=== PATIENT | male | born 1940 | race Caucasian/White ===

== ENCOUNTER 2017-02-18 13:36 | Emergency (ER) | payer OTHER ==
[2017-02-18 13:02] LABS: BASOPHILS 0.4 %; BASOPHILS ABSOLUTE 0.04 10/3/uL (0.0-0.16); EOSINOPHILS 3.9 %; EOSINOPHILS ABSOLUTE 0.39 10/3/uL (0.0-0.53); ER CBC TAT 0 Hrs 05 Mins; HEMATOCRIT 42.5 % (40.0-51.0); HEMOGLOBIN 13.5 g/dL (13.6-17.8); IMMATURE GRANULOCYTES 0.9 %; IMMATURE GRANULOCYTES ABSOLUTE 0.09 10/3/uL (0.0-0.11); LYMPHOCYTES 15.4 %; LYMPHOCYTES ABSOLUTE 1.53 10/3/uL (0.67-4.30); MANUAL DIFF NO %; MEAN CORPUS HGB CONC 31.8 g/dL (32.0-36.0); MEAN CORPUSCULAR HEMOGLOB 30.5 pg (26.0-34.0); MEAN CORPUSCULAR VOLUME 96.2 fL (80-100); MEAN PLATELET VOLUME 10.4 fL (9.2-13.0); MONOCYTES 5.6 %; MONOCYTES ABSOLUTE 0.56 10/3/uL (0.21-1.20); NEUTROPHILS 73.8 %; NEUTROPHILS ABSOLUTE 7.35 10/3/uL (2.02-8.40); PLATELET COUNT 159 10/3/uL (150-400); RBC DISTRIBUTION WIDTH 14.5 % (12.0-16.0); RED CELL COUNT 4.42 10/6/uL (4.7-6.1)
[2017-02-18 13:09] LABS: PARTIAL THROMBO TIME 35.7 SEC (22.5-37.2)
[2017-02-18 13:10] LABS: PROTIME (NOT ORD) 13.1 SEC (12.0-14.5)
[2017-02-18 13:18] LABS: BUN (BLOOD UREA NITROGEN) 20 MG/DL (6-23); CHEST PAIN PROFILE TAT 0 Hrs 21 Mins; CHLORIDE, SERUM 106 MMOL/L (96-112); CO2 (CARBON DIOXIDE) 32 MMOL/L (24-34); CREATININE 1.33 MG/DL (0.70-1.30); GFR AFRICAN AMERICAN 59 ML/MIN (>=60); GFR NON AFRICAN AMERICAN 51 ML/MIN (>=60); GLUCOSE, SERUM 109 MG/DL (60-99); POTASSIUM, SERUM 4.5 MMOL/L (3.5-5.3); SODIUM, SERUM 144 MMOL/L (135-148); TROPONIN I <0.02 NG/ML (<0.05)
[~2017-02-18 13:36] MED LIST: ARICEPT10 PO; ARICEPT23 MG PO; ASAB PO; ASABAYER PO; ATROPINE PO; AUG500 PO; AVELOX400 PO; AVODART PO; CIP5 PO; CIPOTIC OT; CLARIT10 PO; CO Q-10200 MG PO; COZ50 PO; DIPHEN/ATROPINE PO; DIPHENOXYLATE PO; DITRO5 PO; EFFEXXR75 PO; FLOMAX4 PO; HALF81 PO; K500 PO; KLONO1 PO; KLONO5 PO; KLOR-CON M2020 MEQ PO; L40 PO; LIPITOR40 PO; M-END WC OR; MAX25 PO; MIRAPEX1 MG PO; MIRAPEX5 PO; MYCOSCROI TOP; NEUR300 PO; NEUR600 PO; NORCO1 TA1 PO; NORCO1 TAB PO; NORV5 PO; PLAVIX PO; PR25 PO; PRILO PO; PRIM50B PO; PRIN20 PO; PROBIOTIC; PROSCAR5 PO; RAPAFLO8 MG PO; ZOCOR40 PO; ZOL50 PO; [UNRECOGNIZED DRUG - OTHER]; [UNRECOGNIZED DRUG - REMARK]
== END 2017-02-18 15:01 | disposition home or self-care (01) ==
LOC: ER 13:36
PROVIDERS: Emergency Medicine
DX: R07.89 Other chest pain (principal); F03.90 Unspecified dementia, unspecified severity, without behavioral disturbance, psychotic disturbance, mood disturbance, and anxiety; Z79.82 Long term (current) use of aspirin; Z79.899 Other long term (current) drug therapy
CPT/HCPCS: 71010; 80048; 83735; 84484; 85025; 85610; 85730; 93005; 99285; A9270-GY